=== PATIENT | female | born 1975 | race Caucasian/White ===

== ENCOUNTER 2021-03-31 14:26 | Inpatient (IN) ==
[2021-03-31 15:40] LABS: Urine Appearance Clear; Urine Bilirubin Negative (Negative); Urine Blood Negative (Negative); Urine Color Straw; Urine Glucose Negative (Negative); Urine Ketones Negative (Negative); Urine Nitrite Negative (Negative); Urine Protein Negative (Negative); Urine Specific Gravity 1.004 (1.002-1.030); Urine Urobilinogen Negative (Negative)
[2021-03-31 15:44] LABS: ABS Lymphocytes 1.4 10^3/ul (1.0-4.8); ABS Monocytes 0.6 10^3/ul (0-0.8); ABS Neutrophils 1.8 10^3/ul (1.5-7.7); Eosinophil % 1.1 %; Hematocrit 35 % (35-47); Hemoglobin 11.5 g/dL (12.0-16.0); Lymphocyte % 36.6 %; Mean Corpuscular HGB Conc 34 g/dL (31-36); Mean Corpuscular Hemoglobin 33 pg (27-31); Mean Corpuscular Volume 98 fL (80-97); Mean Platelet Volume 6.6 fL (7.4-10.4); Nucleated Red Blood Cells % 0.1; Platelet Count 496 10^3/uL (150-450); Red Blood Count 3.52 10^6 /uL (3.70-4.87); Red Cell Distribution Width 15 % (10-15); White Blood Count 3.8 10^3/uL (3.5-10.8)
[2021-03-31 15:58] LABS: Urine Benzodiazepine Screen None Detected (None Detect); Urine Cannabinoids Screen None Detected (None Detect); Urine Opiates Screen None Detected (None Detect)
[2021-03-31 16:18] LABS: Albumin 4.3 g/dL (3.2-5.2); Blood Urea Nitrogen 4 mg/dL (6-24); CO2 Carbon Dioxide 27 mmol/L (22-32); Calcium 8.7 mg/dL (8.6-10.3); Chloride 104 mmol/L (101-111); Glucose 104 mg/dL (70-100); Sodium 141 mmol/L (135-145); Total Protein 7.3 g/dL (6.4-8.9)
[2021-03-31 16:19] LABS: ALT 42 U/L (7-52); Albumin/Globulin Ratio 1.4 (1-3); Alkaline Phosphatase 64 U/L (35-149)
[2021-03-31 16:23] LABS: Anion Gap 10 mmol/L (2-11)
[2021-03-31 16:55] LABS: Acetaminophen < 15 mcg/mL; Salicylate < 2.50 mg/dL (<30)
[2021-03-31 16:58] LABS: Alcohol, S 430 mg/dL (<13)
[2021-03-31] MEDS ORDERED: Ondansetron 4 mg VIAL 2 MG/ML 2 ml VIAL IV ONE (20:06)
[2021-03-31] MEDS ORDERED: Lorazepam PYXIS KEY PRN (20:18)
[2021-03-31] MEDS ORDERED: LORazepam 2 mg VIAL 1 ml IV PUSH ONE (20:18)
[2021-03-31] MEDS ORDERED: Lactated Ringers 1000 ml BAG 1,000 ML IV ONE (20:30)
[2021-03-31] MEDS ORDERED: Ondansetron 4 mg VIAL 2 MG/ML 2 ml VIAL IV PRN (22:06)
[2021-03-31 22:19] LABS: Rapid COVID-19 Molecular Undetected (Undetected)
[2021-03-31 22:43] LABS: Magnesium 2.1 mg/dL (1.9-2.7)
[2021-04-01] MEDS: LORazepam 2 mg VIAL 1 ml IV PUSH SCH ×4 (03:57→21:57)
[2021-04-01 06:24] LABS: ABS Eosinophils 0.1 10^3/ul (0-0.6); ABS Lymphocytes 0.8 10^3/ul (1.0-4.8); ABS Monocytes 0.7 10^3/ul (0-0.8); ABS Neutrophils 4.6 10^3/ul (1.5-7.7); Eosinophil % 0.9 %; Hematocrit 29 % (35-47); Hemoglobin 9.9 g/dL (12.0-16.0); Lymphocyte % 12.9 %; Mean Corpuscular HGB Conc 34 g/dL (31-36); Mean Corpuscular Hemoglobin 33 pg (27-31); Mean Corpuscular Volume 97 fL (80-97); Mean Platelet Volume 6.9 fL (7.4-10.4); Platelet Count 375 10^3/uL (150-450); Red Blood Count 3.01 10^6 /uL (3.70-4.87); Red Cell Distribution Width 15 % (10-15); White Blood Count 6.3 10^3/uL (3.5-10.8)
[2021-04-01 06:44] LABS: Calcium 8.2 mg/dL (8.6-10.3); Magnesium 1.6 mg/dL (1.9-2.7); Potassium 3.7 mmol/L (3.5-5.0); eGFR CKD-EPI 83.2 (>60)
[2021-04-01] MEDS: Multivitamins/Minerals TAB PO SCH (09:51)
[2021-04-01] MEDS: NF: NORETHINDRONE ACETATE 5 MG TAB (NF) PO SCH (11:26)
[2021-04-02 04:55] LABS: Hematocrit 33 % (35-47); Hemoglobin 11.3 g/dL (12.0-16.0); Mean Corpuscular HGB Conc 34 g/dL (31-36); Mean Corpuscular Hemoglobin 33 pg (27-31); Mean Corpuscular Volume 97 fL (80-97); Mean Platelet Volume 6.8 fL (7.4-10.4); Platelet Count 338 10^3/uL (150-450); Red Blood Count 3.44 10^6 /uL (3.70-4.87); Red Cell Distribution Width 15 % (10-15); White Blood Count 4.9 10^3/uL (3.5-10.8)
[2021-04-02 05:11] LABS: Calcium 8.9 mg/dL (8.6-10.3); Potassium 4.1 mmol/L (3.5-5.0); eGFR CKD-EPI 109.9 (>60)
[2021-04-02] MEDS: NF: NORETHINDRONE ACETATE 5 MG TAB (NF) PO SCH (07:28)
[2021-04-02] MEDS: Multivitamins/Minerals TAB PO SCH (07:28)
[2021-04-02] MEDS ORDERED: CMCS: NORETHINDRONE ACETATE 5 MG TAB (NF) PO SCH (12:00)
[2021-04-02] MEDS ORDERED: Bismuth Subsalicylate (BTL) 525 MG/30 ML (BULK BTL) PO PRN (16:18)
[2021-04-02] MEDS ORDERED: Bismuth Subsalicylate (BTL) 525 MG/30 ML (BULK BTL) PO ONE (16:23)
[2021-04-02 17:56] LABS: Magnesium 1.9 mg/dL (1.9-2.7)
[2021-04-03 08:01] VITALS: BP 98/69
[2021-04-03] MEDS: Multivitamins/Minerals TAB PO SCH (08:10)
[2021-04-03 08:55] LABS: Calcium 9.2 mg/dL (8.6-10.3); Magnesium 1.9 mg/dL (1.9-2.7); Potassium 4.3 mmol/L (3.5-5.0); eGFR CKD-EPI 109.1 (>60)
== END 2021-04-03 10:15 | disposition home or self-care (01) | DRG 775 ==
LOC: EDHOLD 14:26 → ED 14:26 → SUATTDRO 22:06 → MEDTELE 04-01 08:33
PROVIDERS: ADMIT Hospitalist; ATTEND Internal Medicine

== ENCOUNTER 2021-05-06 22:36 | Observation (INO) ==
[2021-05-06 23:21] LABS: ABS Eosinophils 0.1 10^3/ul (0-0.6); ABS Lymphocytes 1.4 10^3/ul (1.0-4.8); ABS Monocytes 0.5 10^3/ul (0-0.8); ABS Neutrophils 4.9 10^3/ul (1.5-7.7); Eosinophil % 0.9 %; Hematocrit 34 % (35-47); Hemoglobin 11.2 g/dL (12.0-16.0); Mean Corpuscular HGB Conc 34 g/dL (31-36); Mean Corpuscular Hemoglobin 32 pg (27-31); Mean Corpuscular Volume 96 fL (80-97); Platelet Count 221 10^3/uL (150-450); Red Blood Count 3.48 10^6 /uL (3.70-4.87); Red Cell Distribution Width 18 % (10-15); White Blood Count 6.9 10^3/uL (3.5-10.8)
[2021-05-06 23:41] LABS: ALT 21 U/L (7-52); AST 43 U/L (13-39); Acetaminophen < 15 mcg/mL; Albumin 4.4 g/dL (3.2-5.2); Albumin/Globulin Ratio 1.5 (1-3); Alcohol, S 387 mg/dL (<13); Alkaline Phosphatase 70 U/L (35-149); Blood Urea Nitrogen 5 mg/dL (6-24); CO2 Carbon Dioxide 31 mmol/L (22-32); Calcium 8.7 mg/dL (8.6-10.3); Chloride 105 mmol/L (101-111); Globulin 2.9 g/dL (2-4); Glucose 98 mg/dL (70-100); Potassium 3.5 mmol/L (3.5-5.0); Salicylate < 2.50 mg/dL (<30); Total Protein 7.3 g/dL (6.4-8.9); eGFR CKD-EPI 110.3 (>60)
[2021-05-06 23:53] LABS: Anion Gap 10 mmol/L (2-11); Sodium 146 mmol/L (135-145)
[2021-05-06 23:55] LABS: TSH Ultra Thyroid Stim Horm 1.55 mcIU/mL (0.34-5.60)
[2021-05-07 04:15] LABS: Urine Appearance Cloudy; Urine Bilirubin Negative (Negative); Urine Blood Negative (Negative); Urine Color Yellow; Urine Glucose Negative (Negative); Urine Ketones Negative (Negative); Urine Nitrite Negative (Negative); Urine Protein Negative (Negative); Urine Specific Gravity 1.012 (1.002-1.030); Urine Urobilinogen Negative (Negative)
[2021-05-07 04:36] LABS: Urine Benzodiazepine Screen Presumptive Positive (None Detect); Urine Cannabinoids Screen None Detected (None Detect); Urine Opiates Screen None Detected (None Detect)
[2021-05-07] MEDS ORDERED: LORazepam 2 mg VIAL 1 ml IV PUSH ONE (07:46)
[2021-05-07] MEDS ORDERED: Lorazepam PYXIS KEY PRN (07:46)
[2021-05-07] MEDS ORDERED: Ondansetron 4 mg VIAL 2 MG/ML 2 ml VIAL IV ONE (08:00)
[2021-05-07] MEDS ORDERED: Ondansetron 4 mg VIAL 2 MG/ML 2 ml VIAL IV PRN (09:13)
[2021-05-07] MEDS ORDERED: Magnesium Hydroxide LIQ 30 ML UDC PO PRN (09:13)
[2021-05-07] MEDS ORDERED: Al Hydrox/Mg Hydrox/Simet LIQ 30 ML UDC PO PRN (09:13)
[2021-05-07] MEDS ORDERED: Thiamine IV 100 MG, Folic Acid IV 1 MG, Multiple Vitamin IV ADULT 10 ML in NS 0.9% 1000... IVPB ONE (12:00)
[2021-05-08 06:50] LABS: Calcium 8.2 mg/dL (8.6-10.3); Potassium 3.7 mmol/L (3.5-5.0); eGFR CKD-EPI 110.7 (>60)
[2021-05-08] MEDS ORDERED: NORETHINDRONE ACETATE 5 MG TAB (NF) PO SCH (09:00)
[2021-05-08] MEDS ORDERED: Multivitamins/Minerals TAB PO SCH (09:00)
[2021-05-08 15:12] VITALS: BP 137/92
== END 2021-05-08 15:30 | disposition home or self-care (01) ==
LOC: ED 22:36 → EDHOLD 22:36 → SUATTDRO 05-07 08:19 → EDHOLD 05-07 14:43 → MED 05-07 15:03
PROVIDERS: ADMIT Internal Medicine; ATTEND Pediatrics